=== PATIENT | male | born 1960 | race African-American/Black ===

== ENCOUNTER 2016-12-28 11:21 | Inpatient (IN) | payer MEDICARE, MEDICAID ==
[~2016-12-28] VITALS: Ht 177.8 cm; Wt 78.9 kg
[~2016-12-28 11:21] MED LIST: CLON0.1T13 PO; CLOZ25TA PO; LISI10TA7 PO; METO-325 PO; PANT20TA PO; SIMV10TA6 PO; [UNRECOGNIZED DRUG - CODE] PO
[2016-12-28] MEDS ORDERED: HALOPERIDOL LACTATE 5 MG/ML VIAL IM ONE (11:30)
[2016-12-28] MEDS ORDERED: DiphenhydrAMINE HCL 50 MG/ML VIAL IM ONE (11:30)
[2016-12-28] MEDS ORDERED: LORazepam 2 MG/ML VIAL IM ONE (11:30)
[2016-12-28 11:43] LABS: BASOPHILS % (AUTO) 0.3 % (0.0-2.0); EOSINOPHILS % (AUTO) 0.3 % (1.0-6.0); HEMATOCRIT 43.6 % (41-53); HEMOGLOBIN 14.7 g/dL (13.5-17.5); LYMPHOCYTES # (AUTO) 1.1 K/uL (1.0-4.8); LYMPHOCYTES % (AUTO) 18.1 % (22.0-44.0); MEAN CORPUSCULAR HEMOGLOBIN 28.2 pg (26.0-34.0); MEAN CORPUSCULAR HGB CONC 33.7 G/dL (31.0-37.0); MEAN CORPUSCULAR VOLUME 84 fL (80-100); MONOCYTES # (AUTO) 0.6 K/uL (0.1-1.0); MONOCYTES % (AUTO) 9.2 % (2.0-9.0); NEUTROPHILS # (AUTO) 4.6 K/uL (1.8-7.7); NEUTROPHILS % (AUTO) 72.1 % (40.0-70.0); PLATELET COUNT (AUTO) 256 K/uL (150-450); RED BLOOD CELL COUNT(AUTO) 5.21 MIL/uL (4.50-5.90); WHITE BLOOD COUNT (AUTO) 6.3 K/uL (4.5-11.0)
[2016-12-28 11:51] LABS: ANION GAP 15 mmol/L (8-16); CALCIUM, TOTAL 9.7 mg/dL (8.8-10.5); CARBON DIOXIDE 24 mmol/L (22-29); CHLORIDE 99 mmol/L (98-107); CREATININE 1.15 mg/dL (0.60-1.30); GLOMERULAR FILTR. RATE CALC > 60 mL/min (>60); POTASSIUM 3.6 mmol/L (3.5-5.1); SODIUM SERUM 138 mmol/L (136-145); UREA NITROGEN, BLOOD 16 mg/dL (7-18)
[2016-12-28 11:57] LABS: ALANINE AMINOTRANSFERASE 67 U/L (12-78); ALBUMIN 4.5 g/dL (3.4-5.0); ASPARTATE AMINOTRANSFERASE 61 U/L (15-37); BILIRUBIN,TOTAL 1.3 mg/dL (0.1-1.0); TOTAL PROTEIN, SERUM 7.8 g/dL (6.4-8.2)
[2016-12-28 19:55] VITALS: BP 125/73
[2016-12-29 06:50] LABS: CHOL/HDL RATIO 2.3 (4.2-7.3)
[2016-12-29 08:15] VITALS: BP 140/83
[2016-12-29] MEDS: HALOPERIDOL 5 MG TABLET PO PRN (09:36)
[2016-12-29] MEDS: LORazepam 2 MG TABLET PO PRN (09:36)
[2016-12-29] MEDS: RisperiDONE 2 MG TABLET PO SCH (20:01)
[2016-12-29 20:07] VITALS: BP 132/75
[2016-12-30] MEDS: LORazepam 2 MG TABLET PO PRN (08:04)
[2016-12-30] MEDS: RisperiDONE 2 MG TABLET PO SCH ×2 (08:04→20:11)
[2016-12-30 08:05] VITALS: BP 131/86
[2016-12-30 19:06] VITALS: BP 136/72
[2016-12-31 00:30] VITALS: BP 131/95
[2016-12-31] MEDS: ZOLPIDEM TARTRATE 10 MG TABLET PO PRN (00:43)
[2016-12-31 08:00] VITALS: BP 146/89
[2016-12-31] MEDS: RisperiDONE 2 MG TABLET PO SCH (08:26)
[2016-12-31 16:26] VITALS: BP 143/87
[2016-12-31] MEDS: OLANZapine 7.5 MG TABLET PO SCH (20:33)
[2017-01-01 06:45] VITALS: BP 155/78
[2017-01-01 08:18] VITALS: BP 154/83
[2017-01-01 16:26] VITALS: BP 141/90
[2017-01-01] MEDS: HALOPERIDOL 5 MG TABLET PO PRN (19:38)
[2017-01-01] MEDS: LORazepam 2 MG TABLET PO PRN (19:38)
[2017-01-01] MEDS: OLANZapine 7.5 MG TABLET PO SCH (20:07)
[2017-01-01] MEDS: ZOLPIDEM TARTRATE 10 MG TABLET PO PRN (21:05)
[2017-01-02 03:02] VITALS: BP 153/93
[2017-01-02] MEDS: HALOPERIDOL 5 MG TABLET PO PRN ×3 (04:18→15:55)
[2017-01-02] MEDS: LORazepam 2 MG TABLET PO PRN ×3 (04:18→15:55)
[2017-01-02] MEDS ORDERED: LORazepam 2 MG/ML VIAL IM ONE (07:45)
[2017-01-02] MEDS ORDERED: HALOPERIDOL LACTATE 5 MG/ML VIAL IM ONE (07:45)
[2017-01-02] MEDS ORDERED: DiphenhydrAMINE HCL 50 MG/ML VIAL IM ONE (07:45)
[2017-01-02 16:30] VITALS: BP 143/79
[2017-01-02] MEDS: OLANZapine 7.5 MG TABLET PO SCH (21:00)
[2017-01-03 02:07] VITALS: BP 125/86
[2017-01-03 09:30] VITALS: BP 135/76
[2017-01-03] MEDS: HALOPERIDOL 5 MG TABLET PO PRN (14:03)
[2017-01-03] MEDS: LORazepam 2 MG TABLET PO PRN (14:03)
[2017-01-03 17:05] VITALS: BP 145/94
[2017-01-03] MEDS: OLANZapine 7.5 MG TABLET PO SCH (20:58)
[2017-01-03] MEDS: ZOLPIDEM TARTRATE 10 MG TABLET PO PRN (20:58)
[2017-01-04] MEDS ORDERED: HALOPERIDOL LACTATE 5 MG/ML VIAL IM ONE (05:00)
[2017-01-04] MEDS ORDERED: LORazepam 2 MG/ML VIAL IM ONE (05:00)
[2017-01-04] MEDS ORDERED: DiphenhydrAMINE HCL 50 MG/ML VIAL IM ONE (05:00)
[2017-01-04] MEDS ORDERED: LORazepam 2 MG/ML VIAL ONE (05:04)
[2017-01-04] MEDS ORDERED: HALOPERIDOL LACTATE 5 MG/ML VIAL ONE (05:05)
[2017-01-04] MEDS ORDERED: DiphenhydrAMINE HCL 50 MG/ML VIAL ONE (05:05)
[2017-01-04] MEDS: LORazepam 2 MG TABLET PO PRN (08:17)
[2017-01-04 17:14] VITALS: BP 134/77
[2017-01-04] MEDS: OLANZapine 7.5 MG TABLET PO SCH (20:16)
[2017-01-04] MEDS: ZOLPIDEM TARTRATE 10 MG TABLET PO PRN (20:16)
[2017-01-05] MEDS: HALOPERIDOL 5 MG TABLET PO PRN (07:49)
[2017-01-05] MEDS: LORazepam 2 MG TABLET PO PRN (07:49)
[2017-01-05 08:00] VITALS: BP 154/102
[2017-01-05 16:49] VITALS: BP 133/87
[2017-01-05] MEDS: OLANZapine 7.5 MG TABLET PO SCH (20:05)
[2017-01-05] MEDS: ZOLPIDEM TARTRATE 10 MG TABLET PO PRN (20:06)
[2017-01-05] MEDS: DIVALPROEX SODIUM 500 MG DR TABLET PO SCH (20:06)
[2017-01-06 01:40] VITALS: BP 136/88
[2017-01-06] MEDS: HALOPERIDOL 5 MG TABLET PO PRN (07:52)
[2017-01-06] MEDS: LORazepam 2 MG TABLET PO PRN (07:52)
[2017-01-06 08:12] VITALS: BP 127/80
[2017-01-06] MEDS: DIVALPROEX SODIUM 500 MG DR TABLET PO SCH ×2 (09:19→20:12)
[2017-01-06 16:40] VITALS: BP 125/75
[2017-01-06] MEDS: OLANZapine 7.5 MG TABLET PO SCH (20:12)
[2017-01-06] MEDS: ZOLPIDEM TARTRATE 10 MG TABLET PO PRN (20:12)
[2017-01-07] MEDS: HALOPERIDOL 5 MG TABLET PO PRN (02:02)
[2017-01-07 02:06] VITALS: BP 146/90
[2017-01-07] MEDS: LORazepam 2 MG TABLET PO PRN ×2 (02:56→08:17)
[2017-01-07 08:00] VITALS: BP 108/88
[2017-01-07] MEDS: DIVALPROEX SODIUM 500 MG DR TABLET PO SCH (08:17)
[2017-01-07] MEDS ORDERED: DIVA500T35 PO ×2 (12:44→12:45)
[2017-01-07] MEDS ORDERED: OLAN7.5T2 PO (12:44)
== END 2017-01-07 14:55 | disposition home or self-care (01) | DRG 885 ==
LOC: EMS 11:25 → 3EX 18:57
DX: F20.0 Paranoid schizophrenia (principal); E78.5 Hyperlipidemia, unspecified; E78.00 Pure hypercholesterolemia, unspecified; K21.9 Gastro-esophageal reflux disease without esophagitis; I10 Essential (primary) hypertension; F12.90 Cannabis use, unspecified, uncomplicated; Z59.0 Homelessness
CPT/HCPCS: 96372; 99285; G0480; J1200; J1630; J2060; J3230

== ENCOUNTER 2017-01-10 18:20 | Inpatient (IN) | payer MEDICARE, MEDICAID ==
[~2017-01-10] VITALS: Ht 172.7 cm; Wt 81.3 kg
[~2017-01-10 18:20] MED LIST changes: -CLON0.1T13 PO; -CLOZ25TA PO; +DIVA500T35 PO; -LISI10TA7 PO; -METO-325 PO; +OLAN7.5T2 PO; -PANT20TA PO; -SIMV10TA6 PO; -[UNRECOGNIZED DRUG - CODE] PO
[2017-01-10] MEDS ORDERED: DIVALPROEX SODIUM 250 MG DR TABLET PO ONE (19:00)
[2017-01-10] MEDS ORDERED: OLANZapine 5 MG TABLET PO ONE (19:00)
[2017-01-10 19:20] LABS: ANION GAP 13 mmol/L (8-16); BASOPHILS % (AUTO) 0.4 % (0.0-2.0); CALCIUM, TOTAL 9.4 mg/dL (8.8-10.5); CARBON DIOXIDE 23 mmol/L (22-29); CHLORIDE 102 mmol/L (98-107); CREATININE 1.05 mg/dL (0.60-1.30); EOSINOPHILS % (AUTO) 0.7 % (1.0-6.0); GLOMERULAR FILTR. RATE CALC > 60 mL/min (>60); HEMATOCRIT 41.7 % (41-53); LYMPHOCYTES # (AUTO) 1.7 K/uL (1.0-4.8); LYMPHOCYTES % (AUTO) 28.2 % (22.0-44.0); MEAN CORPUSCULAR HEMOGLOBIN 28.1 pg (26.0-34.0); MEAN CORPUSCULAR HGB CONC 33.7 G/dL (31.0-37.0); MEAN CORPUSCULAR VOLUME 83 fL (80-100); MONOCYTES # (AUTO) 0.7 K/uL (0.1-1.0); MONOCYTES % (AUTO) 11.1 % (2.0-9.0); NEUTROPHILS # (AUTO) 3.5 K/uL (1.8-7.7); NEUTROPHILS % (AUTO) 59.6 % (40.0-70.0); PLATELET COUNT (AUTO) 218 K/uL (150-450); POTASSIUM 4.1 mmol/L (3.5-5.1); RED BLOOD CELL COUNT(AUTO) 4.99 MIL/uL (4.50-5.90); RED CELL DISTRIBUTION WIDTH 16.1 % (11.5-14.5); SODIUM SERUM 138 mmol/L (136-145); UREA NITROGEN, BLOOD 17 mg/dL (7-18); WHITE BLOOD COUNT (AUTO) 5.9 K/uL (4.5-11.0)
[2017-01-10 19:25] LABS: ALANINE AMINOTRANSFERASE 54 U/L (12-78); ALBUMIN 4.2 g/dL (3.4-5.0); ASPARTATE AMINOTRANSFERASE 62 U/L (15-37); BILIRUBIN,TOTAL 1.6 mg/dL (0.1-1.0); TOTAL PROTEIN, SERUM 7.7 g/dL (6.4-8.2)
[2017-01-10] MEDS ORDERED: DiphenhydrAMINE HCL 25 MG CAPSULE PO ONE (20:15)
[2017-01-10] MEDS ORDERED: LORazepam 2 MG TABLET PO ONE (20:15)
[2017-01-10] MEDS ORDERED: HALOPERIDOL 5 MG TABLET PO PRN (20:30)
[2017-01-10 21:34] LABS: APPEARANCE,URINE TURBID (CLEAR); GLUCOSE, URINE (UA) NEGATIVE (NEGATIVE); KETONES,URINE 15 mg/dL (NEGATIVE); LEUKOCYTE ESTERASE ,URINE NEGATIVE (NEGATIVE); OCCULT BLOOD,URINE NEGATIVE (NEGATIVE); PH,URINE 5.5 (5.0-8.0); PROTEIN,URINE TRACE (NEGATIVE)
[2017-01-10 21:40] LABS: ADD UA MICROSCOPIC YES
[2017-01-10 21:42] LABS: AMORPHOUS SEDIMENT,UR Moderate /LPF (None Seen); RBC,URINE 0-2 /HPF (0-2); SQUAMOUS EPITHELIAL CELL,UR Rare /LPF (None Seen)
[2017-01-10 21:43] LABS: CHOL/HDL RATIO 2.8 (4.2-7.3)
[2017-01-10] MEDS: ZOLPIDEM TARTRATE 10 MG TABLET PO PRN (22:23)
[2017-01-10 22:28] VITALS: BP 146/83
[2017-01-11 06:33] VITALS: BP 146/85
[2017-01-11] MEDS ORDERED: HALOPERIDOL LACTATE 5 MG/ML VIAL ONE (07:56)
[2017-01-11] MEDS ORDERED: LORazepam 2 MG/ML VIAL ONE (07:58)
[2017-01-11] MEDS ORDERED: DiphenhydrAMINE HCL 50 MG/ML VIAL ONE (07:58)
[2017-01-11] MEDS ORDERED: HALOPERIDOL LACTATE 5 MG/ML VIAL IM ONE (08:00)
[2017-01-11] MEDS ORDERED: DiphenhydrAMINE HCL 50 MG/ML VIAL IM ONE (08:00)
[2017-01-11] MEDS ORDERED: LORazepam 2 MG/ML VIAL IM ONE (08:00)
[2017-01-11] MEDS: LORazepam 2 MG TABLET PO PRN ×3 (08:02→21:40)
[2017-01-11 08:39] VITALS: BP 157/95
[2017-01-11] MEDS: NICOTINE 14 MG/24 HOUR PATCH TD SCH (09:00)
[2017-01-11 14:03] VITALS: BP 142/86
[2017-01-11 16:00] VITALS: BP 130/73
[2017-01-11] MEDS: OLANZapine 7.5 MG TABLET PO SCH (20:37)
[2017-01-11] MEDS: DIVALPROEX SODIUM 500 MG DR TABLET PO SCH (20:37)
[2017-01-11] MEDS: ZOLPIDEM TARTRATE 10 MG TABLET PO PRN (21:40)
[2017-01-12 06:39] VITALS: BP 132/79
[2017-01-12 08:27] VITALS: BP 132/70
[2017-01-12] MEDS: NICOTINE 14 MG/24 HOUR PATCH TD SCH (08:36)
[2017-01-12] MEDS: DIVALPROEX SODIUM 500 MG DR TABLET PO SCH ×2 (08:36→20:40)
[2017-01-12] MEDS: LORazepam 2 MG TABLET PO PRN ×3 (08:36→20:40)
[2017-01-12 16:00] VITALS: BP 136/88
[2017-01-12] MEDS: NITROFURANTOIN/NITROFURAN MAC 100 MG CAPSULE [MACROBID] PO SCH (16:17)
[2017-01-12] MEDS: OLANZapine 7.5 MG TABLET PO SCH (20:40)
[2017-01-12] MEDS: ZOLPIDEM TARTRATE 10 MG TABLET PO PRN (20:40)
[2017-01-13 06:45] VITALS: BP 132/85
[2017-01-13 08:00] VITALS: BP 140/80
[2017-01-13] MEDS: NITROFURANTOIN/NITROFURAN MAC 100 MG CAPSULE [MACROBID] PO SCH ×2 (08:21→16:40)
[2017-01-13] MEDS: DIVALPROEX SODIUM 500 MG DR TABLET PO SCH ×2 (08:21→20:43)
[2017-01-13 16:00] VITALS: BP 141/81
[2017-01-13] MEDS: LORazepam 2 MG TABLET PO PRN ×2 (16:40→20:44)
[2017-01-13] MEDS: OLANZapine 7.5 MG TABLET PO SCH (20:44)
[2017-01-13] MEDS: ZOLPIDEM TARTRATE 10 MG TABLET PO PRN (20:44)
[2017-01-14 05:58] VITALS: BP 136/84
[2017-01-14 08:05] VITALS: BP 143/86
[2017-01-14] MEDS: NITROFURANTOIN/NITROFURAN MAC 100 MG CAPSULE [MACROBID] PO SCH ×2 (08:26→16:23)
[2017-01-14] MEDS: DIVALPROEX SODIUM 500 MG DR TABLET PO SCH ×2 (08:26→20:10)
[2017-01-14] MEDS: LORazepam 2 MG TABLET PO PRN (08:27)
[2017-01-14 16:00] VITALS: BP 141/73
[2017-01-14] MEDS: OLANZapine 7.5 MG TABLET PO SCH (20:10)
[2017-01-14] MEDS: ZOLPIDEM TARTRATE 10 MG TABLET PO PRN (20:10)
[2017-01-15 02:42] VITALS: BP 135/88
[2017-01-15] MEDS: DIVALPROEX SODIUM 500 MG DR TABLET PO SCH (08:05)
[2017-01-15] MEDS: LORazepam 2 MG TABLET PO PRN ×2 (08:05→12:48)
[2017-01-15] MEDS: NITROFURANTOIN/NITROFURAN MAC 100 MG CAPSULE [MACROBID] PO SCH (08:05)
[2017-01-15 08:09] VITALS: BP 138/64
[2017-01-15] MEDS ORDERED: MACR100 PO (14:13)
== END 2017-01-15 15:15 | disposition home or self-care (01) | DRG 885 ==
LOC: EEVIPCON 18:21 → EMS 18:21 → B2S 21:05 → B3A 22:30
PROVIDERS: ADMIT Psychiatry & Neurology Child & Adolescent Psychiatry
DX: F20.0 Paranoid schizophrenia (principal); F41.9 Anxiety disorder, unspecified; R12 Heartburn; I10 Essential (primary) hypertension; K21.9 Gastro-esophageal reflux disease without esophagitis; E78.00 Pure hypercholesterolemia, unspecified; F12.90 Cannabis use, unspecified, uncomplicated; Z91.14 Patient's other noncompliance with medication regimen
CPT/HCPCS: 87081; 87086; 99285; G0480; J1200; J1630; J2060

== ENCOUNTER 2017-02-05 22:56 | Emergency (ER) | payer MEDICARE, MEDICAID ==
[~2017-02-05] VITALS: Ht 182.9 cm; Wt 86.4 kg
[2017-02-05 22:59] VITALS: BP 152/94
== END 2017-02-06 01:14 | disposition left against medical advice (07) ==
LOC: EMS 22:58
DX: Z00.8 Encounter for other general examination (principal); F31.9 Bipolar disorder, unspecified; F20.9 Schizophrenia, unspecified; F17.210 Nicotine dependence, cigarettes, uncomplicated; Z53.21 Procedure and treatment not carried out due to patient leaving prior to being seen by health care provider